=== PATIENT | female | born 1985 | race Caucasian/White ===

== ENCOUNTER 2018-12-29 21:40 | Emergency (ER) | payer OTHER ==
[~2018-12-29] VITALS: Ht 157.5 cm; Wt 54.4 kg
[~2018-12-29 21:40] MED LIST: ACET-2165 PO; CYCL-10 PO; INDO25CA18 PO; NORT25CA5 PO; RIZA10TA22 PO
[2018-12-29 21:45] VITALS: BP_SYST 129
--- NOTE | 2018-12-29 21:48 | NUR ---
PLPatient to ER bed 02 to gown for evaluation. Side rails up.
--- NOTE | 2018-12-29 21:55 | NUR ---
Pt came into ER w/ c/o of Rt thumb laceration, that was sustained after Pt attempted to move a fridge. Wound was undresed and cleaned. Pt c/o of pain 09/19. Pt states that nothing was left in the wound. Will continue to monitor. No significant Hx.
--- NOTE | 2018-12-29 22:05 | NUR ---
Dr. Anderson at bedside examining Pt.
[2018-12-29] MEDS ORDERED: DIPH-TET-PERTUS Vaccine 0.5 ML VIAL (ADACEL) I.M. ONE (22:30)
[2018-12-29] MEDS ORDERED: BACITRACIN 1 GM OINT TP ONE (22:30)
[2018-12-29] MEDS ORDERED: LIDOCAINE 1% 10 MG/ML, 20 ML MDV INJ ONE (22:30)
[2018-12-29] MEDS ORDERED: ACETAMINOPHEN 500 MG TABLET PO ONE (22:45)
[2018-12-29 23:35] VITALS: BP_SYST 122
--- NOTE | 2018-12-29 23:35 | NUR ---
Patient given written and verbal discharge instructions and verbalizes understanding. ER MD discussed with patient the results and treatment provided. Patient in stable condition. ID arm band removed. Patient educated on pain management and to follow up with PMD. Pain Scale 0/10. Opportunity for questions provided and answered. Medication side effect fact sheet provided.
== END 2018-12-29 23:35 | disposition home or self-care (01) ==
LOC: SED 21:40
DX: S61.011A Laceration without foreign body of right thumb without damage to nail, initial encounter (principal); G43.909 Migraine, unspecified, not intractable, without status migrainosus; Z88.8 Allergy status to other drugs, medicaments and biological substances; Z79.899 Other long term (current) drug therapy; X58.XXXA Exposure to other specified factors, initial encounter; Y93.89 Activity, other specified; Y92.89 Other specified places as the place of occurrence of the external cause; Y99.8 Other external cause status
CPT/HCPCS: 12001; 90471; 90715; 99283; J2001

== ENCOUNTER 2019-04-14 17:23 | Emergency (ER) | payer OTHER ==
[~2019-04-14] VITALS: Ht 157.5 cm; Wt 54.9 kg
[~2019-04-14 17:23] MED LIST changes: +INDO-11 PO; -INDO25CA18 PO
[2019-04-14 17:25] VITALS: BP_SYST 105
--- NOTE | 2019-04-14 20:00 | NUR ---
Pt ambulatory to bed hallway for evaluation
[2019-04-14 21:44] LABS: BASOPHILS % (AUTO) 0.4 % (0.0-2.0); HEMATOCRIT 36.7 % (36-48); HEMOGLOBIN 12.3 g/dL (12.0-16.0); LYMPHOCYTES # (AUTO) 1.2 K/uL (1.0-5.5); LYMPHOCYTES % (AUTO) 11.8 % (20.5-51.5); MEAN CORPUSCULAR HEMOGLOBIN 28 pg (27-31); MEAN CORPUSCULAR HGB CONC 34 % (32-36); MEAN CORPUSCULAR VOLUME 84 fL (79.0-98.0); MONOCYTES # (AUTO) 0.4 K/uL (0.0-1.0); MONOCYTES % (AUTO) 3.5 % (1.7-9.3); NEUTROPHILS # (AUTO) 8.7 K/uL (1.8-7.7); NEUTROPHILS % (AUTO) 84.3 % (40.0-70.0); PLATELET COUNT (AUTO) 298 K/uL (130-430); RED BLOOD CELL COUNT(AUTO) 4.37 MIL/uL (4.2-6.2); RED CELL DISTRIBUTION WIDTH 12.6 % (9.0-15.0); WHITE BLOOD COUNT (AUTO) 10.4 K/uL (4.8-10.8)
--- NOTE | 2019-04-14 21:47 | NUR ---
Dr. Anderson bedside for Pt eval
[2019-04-14] MEDS ORDERED: MORPHINE 2 MG/ML INJ. SYRINGE IM ONE (22:00)
[2019-04-14] MEDS ORDERED: ONDANSETRON 4 MG ODT TAB PO ONE (22:00)
[2019-04-14] MEDS ORDERED: MECLIZINE HCL 25 MG TABLET (ANITVERT) PO ONE (22:00)
--- NOTE | 2019-04-14 22:00 | NUR ---
Pt BIB family to ED C/O constant dizziness 1 hour after taking Tramadol and Bactrim yesterday night. Per patient, she has nausea associated with non-bilious, non-bloody emesis since ~07:00am. She further states a migraine since ~09:00 today, rated 10/10 intensity. The headache reportedly worsens with head movements or getting up from sitting or lying down. Reports her migraine is bad but had a similar headache last year with a CT head scan done that resulted normal No other complaints VSS no s/s of acute distress Resting on gurney rails up
[2019-04-14 22:11] LABS: ALBUMIN 3.8 g/dL (3.4-4.8); CALCIUM 8.8 mg/dL (8.4-11.0); CREATININE 0.6 mg/dL (0.55-1.30); POTASSIUM 4.1 mmol/L (3.5-5.1); TOTAL BILIRUBIN 0.4 mg/dL (0.0-1.0)
[2019-04-14 23:30] VITALS: BP_SYST 108
--- NOTE | 2019-04-14 23:30 | NUR ---
Patient given written and verbal discharge instructions and verbalizes understanding. ER MD discussed with patient the results and treatment provided. Patient in stable condition. ID arm band removed. Rx of Zofran and Antivert given. Patient educated on pain management and to follow up with PMD. Pain Scale 0/10 Opportunity for questions provided and answered. Medication side effect fact sheet provided.
== END 2019-04-14 23:30 | disposition home or self-care (01) ==
LOC: SED 17:23
DX: R42 Dizziness and giddiness (principal); G43.909 Migraine, unspecified, not intractable, without status migrainosus; Z88.8 Allergy status to other drugs, medicaments and biological substances; Z79.899 Other long term (current) drug therapy
CPT/HCPCS: 36415; 80053; 81025; 85025; 93005; 96372; 99284; J2270; J8597; Q0162

== ENCOUNTER 2023-09-10 19:04 | Emergency (ER) | payer BC, OTHER ==
[~2023-09-10] VITALS: Ht 157.5 cm; Wt 61.2 kg
[~2023-09-10 19:04] MED LIST changes: -ACET-2165 PO; +ACET325T PO; -CYCL-10 PO; +CYCL10TA24 PO
[2023-09-10 19:14] VITALS: BP_SYST 113; PULSE 104; RESP 18; TEMP 98.7; O2SAT 100
[2023-09-10 19:54] LABS: BASOPHILS % (AUTO) 0.6 % (0.0-2.0); EOSINOPHILS # (AUTO) 0.1 K/uL (0.0-0.4); EOSINOPHILS % (AUTO) 0.7 % (0.0-4.0); HEMATOCRIT 36.9 % (36-48); HEMOGLOBIN 12.5 g/dL (12.0-16.0); LYMPHOCYTES # (AUTO) 1.9 K/uL (1.0-5.5); LYMPHOCYTES % (AUTO) 23.2 % (20.5-51.5); MEAN CORPUSCULAR HEMOGLOBIN 28 pg (27-31); MEAN CORPUSCULAR HGB CONC 34 % (32-36); MEAN CORPUSCULAR VOLUME 82 fL (79.0-98.0); MONOCYTES # (AUTO) 0.6 K/uL (0.0-1.0); MONOCYTES % (AUTO) 6.9 % (1.7-9.3); NEUTROPHILS # (AUTO) 5.5 K/uL (1.8-7.7); NEUTROPHILS % (AUTO) 68.6 % (40.0-70.0); PLATELET COUNT (AUTO) 321 K/uL (130-430); RED BLOOD CELL COUNT(AUTO) 4.48 MIL/uL (4.2-6.2); RED CELL DISTRIBUTION WIDTH 13.4 % (9.0-15.0); WHITE BLOOD COUNT (AUTO) 8.1 K/uL (4.8-10.8)
[2023-09-10 20:07] LABS: ALBUMIN 3.9 g/dL (3.4-4.8); BILIRUBIN,DIRECT 0.1 mg/dL (0.0-0.3); CALCIUM 8.9 mg/dL (8.4-11.0); CREATININE 0.77 mg/dL (0.55-1.30); POTASSIUM 3.7 mmol/L (3.5-5.1); TOTAL BILIRUBIN 0.6 mg/dL (0.0-1.0); TOTAL PROTEIN, SERUM 7.8 g/dL (6.4-8.3)
[2023-09-10] MEDS: KETOROLAC TROMETHAMINE 60 MG/2 ML VIAL IM ONE (20:21)
[2023-09-10 20:26] LABS: BILIRUBIN,URINE NEGATIVE (NEGATIVE); BLOOD, URINE NEGATIVE (NEGATIVE); CLARITY/URINE CLEAR (CLEAR); COLOR,URINE YELLOW (YELLOW); GLUCOSE,URINE NEGATIVE (NEGATIVE); KETONES,URINE NEGATIVE (NEGATIVE); LEUKOCYTE ESTERASE ,URINE NEGATIVE (NEGATIVE); NITRITE, URINE NEGATIVE (NEGATIVE); PH,URINE 6.5 (5.0-8.0); PROTEIN URINE NEGATIVE (NEGATIVE)
[2023-09-10] MEDS ORDERED: HYDR-3917 PO (21:13)
[2023-09-10] MEDS: MORPHINE 4 MG INJ. 4 MG/ML VIAL IVP ONE (21:20)
[2023-09-10 22:08] VITALS: BP_SYST 120; PULSE 99; RESP 18; TEMP 99; O2SAT 95
== END 2023-09-10 22:09 | disposition home or self-care (01) ==
LOC: SED 19:04
DX: N60.01 Solitary cyst of right breast (principal); K21.9 Gastro-esophageal reflux disease without esophagitis; G43.909 Migraine, unspecified, not intractable, without status migrainosus; Z88.8 Allergy status to other drugs, medicaments and biological substances; Z79.899 Other long term (current) drug therapy; Z79.2 Long term (current) use of antibiotics
CPT/HCPCS: 99285; 96374; 80076; 80048; 81001; 85025; 36415; 76642; 81025; 96372; J1885; J2270; 81003